=== PATIENT | male | born 1970 | race Caucasian/White ===

== ENCOUNTER 2020-12-20 17:05 | Emergency (ER) | payer OTHER ==
[~2020-12-20] VITALS: Ht 193 cm; Wt 93.0 kg
[2020-12-20 17:39] LABS: BASOPHILS % (AUTO) 0.3 % (0.0-5.0); EOSINOPHILS % (AUTO) 0.3 % (0.0-8.0); HEMATOCRIT 42.5 % (42-54); LYMPHOCYTES % (AUTO) 10.7 % (21.0-51.0); MEAN CORPUSCULAR HEMOGLOBIN 30.2 pg (27.0-33.0); MEAN CORPUSCULAR HGB CONC 34.6 g/dL (32.0-36.0); MEAN CORPUSCULAR VOLUME 87.3 fL (79-99); MONOCYTES % (AUTO) 7.5 % (3.0-13.0); NEUTROPHILS % (AUTO) 80.9 % (40.0-77.0); PLATELET COUNT (AUTO) 207 K/uL (130-400); RED BLOOD CELL COUNT(AUTO) 4.87 MIL/uL (4.50-6.20); RED CELL DISTRIBUTION WIDTH 12.3 % (11.0-15.5); WHITE BLOOD COUNT (AUTO) 10.4 K/uL (4.8-10.8)
[2020-12-20 17:48] LABS: CREATININE 1.2 mg/dL (0.5-1.5); POTASSIUM 3.7 mmol/L (3.5-5.1)
[2020-12-20 17:52] LABS: ALBUMIN 4.1 g/dL (3.5-5.0); BILIRUBIN,TOTAL 1.4 mg/dL (0.2-1.0); TOTAL PROTEIN, SERUM 8.1 g/dL (6.0-8.3)
[2020-12-20 18:18] VITALS: BP 132/77
[2020-12-20 19:30] VITALS: BP 142/71
[2020-12-20] MEDS ORDERED: FAMOTIDINE/PF 20 MG/2 ML VIAL IV ONE (19:30)
[2020-12-20] MEDS ORDERED: METOCLOPRAMIDE 10 MG/2 ML VIAL IVP SCH (19:30)
[2020-12-20] MEDS ORDERED: KETOROLAC 30MG VIAL (30MG/ML) IV ONE (22:00)
[2020-12-20] MEDS ORDERED: FAMO20TA8 PO (22:06)
[2020-12-20] MEDS ORDERED: DICY20TA2 PO (22:06)
[2020-12-20] MEDS ORDERED: METO10TA41 PO (22:07)
[2020-12-20] MEDS ORDERED: MAG HYDROX/AL HYDROX/SIMETH ES 30 ML SUSP UDCUP PO ONE (23:00)
[2020-12-20] MEDS ORDERED: PHARMACY COMMUNICATION MISC SCH ×3 (23:00)
[2020-12-20] MEDS: LIDOCAINE HCL 2% VISCOUS 15 ML UDCUP PO SCH ×2 (23:00→23:57)
[2020-12-20] MEDS ORDERED: DICYCLOMINE HCL 10 MG/5 ML ML PO ONE (23:00)
[2020-12-20] MEDS ORDERED: LIDOCAINE HCL 2% VISCOUS 15 ML UDCUP PO ONE (23:00)
[2020-12-20] MEDS ORDERED: LIDOCAINE HCL 2% VISCOUS 15 ML UDCUP PO SCH (23:15)
[2020-12-20] MEDS ORDERED: DICYCLOMINE HCL 10 MG/5 ML ML PO SCH (23:15)
[2020-12-21 00:03] VITALS: BP 132/74
== END 2020-12-21 00:09 | disposition home or self-care (01) ==
LOC: EDH 17:05
DX: R10.13 Epigastric pain (principal); Z79.899 Other long term (current) drug therapy; Z85.46 Personal history of malignant neoplasm of prostate; Z98.890 Other specified postprocedural states
CPT/HCPCS: 36415; 71045; 76705; 80053; 84484; 85025; 93005; 96374; 96375; 99285; J1885; J2765; J3490